=== PATIENT | male | born 1960 | race Caucasian/White ===

== ENCOUNTER 2023-02-01 07:57 | Day surgery (SDC) | payer OTHER, SELFPAY ==
[2023-02-01 08:21] VITALS: BP 152/86; PULSE 75; RESP 16; TEMP 36.6; O2SAT 99; BMI 18.1
--- NOTE | 2023-02-01 08:49 | HO.ANESPROP2 ---
HPI - Anesthesia Eval Consult details Narrative: 62 yo male patient for colonoscopy PMFSH Past Medical History Medical History Chronic abdominal pain Family History Family history of problems with anesthesia: No Surgical History Surgical History Hx of colonoscopy Hx of esophagogastroduodenoscopy History of Problems with Anesthesia: No Social History Social History Advance Directives: No Advance Directives Information Provided: Yes Meds Allergies Allergy/AdvReac Type Severity Reaction Status Date / Time No Known Allergies Allergy Verified 01/29/23 11:42 Home Medications Medication Instructions Recorded Confirmed Last Taken Type sertraline 50 mg tablet mg PO 01/29/23 Unknown History tramadol 50 mg tablet 50 mg PO DAILY 01/29/23 01/29/23 Unknown History Exam Exam Date and Time: February 01, 2023 0849 Height,Weight and Vital Signs: Height 5 ft 11 in Weight 58.967 kg Last Vital Signs Temp 98 F 02/01/23 08:21 Pulse 75 02/01/23 08:21 Resp 16 02/01/23 08:21 BP 152/86 H 02/01/23 08:21 Pulse Ox 99 02/01/23 08:21 O2 Del Method Room Air 02/01/23 08:21 Airway Mallampati Class: I TM Dist: >3cm Neck ROM: Full Denture: Upper and Lower Heart: RRR Lungs: CTAB Assessment and Plan Final Anesthetic Review Family History of Problems with Anesthesia: No History of Problems with Anesthesia: No NPO: Yes ASA Class: II Final Preanesthetic Review: No Changes in Pt Med Stat, Meds/Allgs Chart Reviewed, Consent Obtained/Reviewed and Anes Risks/Benef Reviewed Patient Risk: Low Procedure Risk: Low Assessment/Block/Sedation in SS: Assess/Block/Sedation-SS Anesthetic Plan Anesthetic Plan: MAC: Disposition: Standard PACU
[2023-02-01] MEDS: Lactated Ringers 1,000 ML 100 ML IVCONT (09:06)
[2023-02-01 10:29] VITALS: BP 141/87; PULSE 68; RESP 16; TEMP 36.6; O2SAT 99
--- NOTE | 2023-02-01 10:32 | PM.OP ---
Brief Operative Note Date of Service: 02/01/23 Pre-op diagnosis: Screening Post-op diagnosis: other (Polyp) Procedure: Colonoscopy to the cecum with hot snare polypectomy Surgeon: Beck Camacho Anesthesia: MAC Was an [employer] used for this Procedure?: No Estimated blood loss (mL): 0 Pathology: other (A. Cecal polyp) Condition: stable Disposition: PACU
[2023-02-01 10:44] VITALS: BP 139/86; PULSE 61; RESP 18; TEMP 36.1; O2SAT 97
--- NOTE | 2023-02-01 21:17 | OP_ITS ---
DATE OF SERVICE: 02/01/2023 SURGEON: Beck Camacho MD INDICATIONS: The patient presents for evaluation of colorectal cancer screening and family history of colon cancer. Full consent has been obtained from him for this, including risks of bleeding and perforation. PREOPERATIVE DIAGNOSIS: Colorectal cancer screening and family history of colon cancer. POSTOPERATIVE DIAGNOSIS: PROCEDURE PERFORMED: Colonoscopy to the cecum with hot snare polypectomy. ESTIMATED BLOOD LOSS: COMPLICATIONS: ANESTHESIA: Monitored anesthesia care. ASSISTANTS: SPECIMENS: POSTOPERATIVE DIAGNOSES: Colorectal cancer screening and family history of colon cancer, colon polyp, diverticulosis, and internal hemorrhoids. DESCRIPTION OF PROCEDURE: The patient was placed in the left lateral decubitus position. The digital rectal exam revealed no abnormalities. The Olympus video pediatric colonoscope was entered into the rectum and advanced to the cecum. Advancement past the sigmoid colon was somewhat difficult. Once in the cecum I did identify cecal pouch with appendiceal orifice and a normal-appearing ileocecal valve. There was transillumination of light deep in the right lower quadrant. The entire cecum was well visualized. In the cecum was an approximately 6 to 8 mm grossly adenomatous polyp, which was removed by hot snare polypectomy and recovered by suction. The polypectomy site appeared clean, without any sign of residual polyp nor bleeding. The remainder of the cecum appeared normal. The scope was slowly withdrawn assessing all mucosal surfaces carefully. Preparation was good although the left colon did have some residual liquid and solid stool which had to be irrigated and suctioned away as best as possible. I did not visualize any other polyps, colitis, nor angiodysplasia. There was a mild amount of sigmoid diverticulosis. In the rectum, scope was retroflexed visualizing small internal hemorrhoids, but no other pathology. The rectal mucosa appeared normal. The scope was straightened and withdrawn from the patient. He tolerated the procedure well and was returned to the recovery area in stable condition. IMPRESSION: 1. Colon polyp. 2. Diverticulosis. 3. Internal hemorrhoids. PLAN: The results of the pathology will be checked. Given his family history of 2 first-degree relatives with colon cancer, today's findings, and the somewhat limited prep in the left colon, I would recommend a repeat colonoscopy in 3 years, rather than 5. He was advised not to use any aspirin nor NSAIDs for 1 week. MD JOY Palacios/PUMA / [id number] MTDD
== END 2023-02-01 11:33 | disposition home or self-care (01) ==
PROVIDERS: PCP Internal Medicine; Visit Provider Internal Medicine
PROC: 0DJD8ZZ Inspection of Lower Intestinal Tract, Via Natural or Artificial Opening Endoscopic (ICD-10-PCS; CPT 45378; principal; 2023-02-01 09:40)
DX: Z12.11 Encounter for screening for malignant neoplasm of colon (principal); Z80.0 Family history of malignant neoplasm of digestive organs; D12.0 Benign neoplasm of cecum; K57.30 Diverticulosis of large intestine without perforation or abscess without bleeding; K64.8 Other hemorrhoids; R10.9 Unspecified abdominal pain; G89.29 Other chronic pain; Z87.891 Personal history of nicotine dependence
CPT/HCPCS: 45385; 88305